=== PATIENT | female | born 1985 | race Caucasian/White ===

== ENCOUNTER → 2018-08-20 | Outpatient (CLI) | payer OTHER ==
--- NOTE | 2018-08-20 12:23 | US ---
EXAMINATION TYPE: US thyroid st tissue head/neck DATE OF EXAM: 08/20/2018 COMPARISON: NONE CLINICAL HISTORY: E07.9Disorder of thyroid, unspecified. MEASUREMENTS: GLAND SIZE: Right Lobe: 4.9 x 1.5 x 1.8cm grossly heterogeneous Left Lobe: 4.9 x 1.2 x 1.9 grossly heterogeneous Isthmus Thickness: 0.3 NODULES RIGHT: # of nodules measured on right: 0 LEFT: # of nodules measured on left: 0 ISTHMUS: # of nodules measured within isthmus: 0 Bilateral neck scanned, no evidence of lymphadenopathy. IMPRESSION: 1. Normal thyroid
== END ==
LOC: RADUSWWP 06:51
PROVIDERS: ATTEND Family Medicine
DX: E07.9 Disorder of thyroid, unspecified (principal)
CPT/HCPCS: 76536

== ENCOUNTER → 2019-09-25 | Outpatient (CLI) | payer OTHER ==
--- NOTE | 2019-09-25 12:22 | MM ---
Reason for exam: clinical finding. Baseline mammogram. Physical Findings: Nurse Summary: 0.5cm nodule in the left breast at 6 o'clock (nurse page). MG 3D Diag Mammo W/Cad ANISH Bilateral CC and MLO view(s) were taken. XCCL view(s) were taken of the right breast. The breast tissue is extremely dense which could obscure a lesion on mammography. There is no discrete abnormality including area of concern marked by BB's. These results were verbally communicated with the patient and result sheet given to the patient on 09/25/19. ASSESSMENT: Incomplete: need additional imaging evaluation, BI-RAD 0 RECOMMENDATION: Ultrasound of both breasts.
--- NOTE | 2019-09-25 12:26 | USB ---
Reason for exam: additional evaluation requested from abnormal screening. US Breast Limited BILAT Right complete breast ultrasound includes all four quadrants, the retroareolar region and axilla. Finding demonstrates no cystic or solid lesion seen. Left limited breast ultrasound including focal area of concern, retroareolar and axilla demonstrates 1.9 x 2.7cm hyperechoic lesion with hypoechoic center at 11 o'clock BB. These results were verbally communicated with the patient and result sheet given to the patient on 09/25/19. ASSESSMENT: Benign, BI-RAD 2 RECOMMENDATION: Routine screening mammogram of both breasts at age 38. Manage patient on a clinical basis.
== END | disposition home or self-care (01) ==
LOC: RADMAMWWP 09:41
PROVIDERS: ATTEND Family Medicine
DX: N63.10 Unspecified lump in the right breast, unspecified quadrant (principal)
CPT/HCPCS: 77062; 77066

== ENCOUNTER → 2022-02-06 | Outpatient (CLI) | payer OTHER ==
--- NOTE | 2022-02-06 18:44 | CA ---
Transthoracic Echo Report Name: Rukhsana Schneider Age: 37 Gender: F : 1985 Exam Date: 02/06/2022 14:38 Exam Location: [place] [facility] Ht (in): 68 Wt (lb): 230 Ordering Physician: Amrik Grace MD Attending/Referring Phys: [id number], Lesly Inner Tube Tuber Machine Operator Phuong Carmichael, [facility] Procedure CPT: Indications: R0600 DYSPNEA, UNSPECIFIED Cardiac Hx: Technical Quality: Fair Contrast 1: Total Dose (mL): Contrast 2: Total Dose (mL): MEASUREMENTS (Male / Female) Normal Values 2D ECHO LV Diastolic Diameter PLAX 4.1 cm 4.2 - 5.9 / 3.9 - 5.3 cm LV Systolic Diameter PLAX 2.5 cm IVS Diastolic Thickness 1.0 cm 0.6 - 1.0 / 0.6 - 0.9 cm LVPW Diastolic Thickness 1.2 cm 0.6 - 1.0 / 0.6 - 0.9 cm LV Relative Wall Thickness 0.5 RV Internal Dim ED PLAX 2.9 cm LA Volume 49.0 cm??? 18 - 58 / 22 - 52 cm??? DOPPLER AV Peak Velocity 113.2 cm/s AV Peak Gradient 5.1 mmHg LVOT Peak Velocity 108.0 cm/s LVOT Peak Gradient 4.7 mmHg MV Area PHT 2.9 cm??? Mitral E Point Velocity 75.6 cm/s Mitral A Point Velocity 85.8 cm/s Mitral E to A Ratio 0.9 MV Deceleration Time 265.2 ms MV E' Velocity 9.6 cm/s Mitral E to MV E' Ratio 7.8 TR Peak Velocity 187.1 cm/s TR Peak Gradient 14.0 mmHg Right Ventricular Systolic Press 19.0 mmHg FINDINGS Left Ventricle Normal Left ventricular size, wall thickness, systolic function with no obvious regional wall motion abnormalities. Normal Left ventricular diastolic filling pattern. Left ventricular ejection fraction is estimated at 55-60 %. Right Ventricle Normal right ventricular size. Right ventricular systolic pressure within normal limits. Right Atrium Normal right atrial size. Left Atrium Normal left atrial size. Mitral Valve Structurally normal mitral valve. No mitral stenosis, regurgitation or prolapse. Aortic Valve Trileaflet aortic valve. No aortic valve stenosis or regurgitation. Tricuspid Valve Structurally normal tricuspid valve. Mild tricuspid regurgitation. Pulmonic Valve Trace pulmonic regurgitation. Pericardium No pericardial effusion. Aorta Normal size aortic root and proximal ascending aorta. CONCLUSIONS Left ventricular ejection fraction 60%, normal Previewed by: Dr. Yamil Solorio MD (Electronically Signed) Final Date: 06 February 2022 18:43
== END | disposition home or self-care (01) ==
LOC: RADECHMAIN 14:33
PROVIDERS: ATTEND Family Medicine
DX: R06.00 Dyspnea, unspecified (principal)
CPT/HCPCS: 93306

== ENCOUNTER 2023-09-27 16:40 | Emergency (ER) | payer OTHER ==
--- NOTE | 2023-09-27 16:56 | ED ---
Extremity Problem HPI - General Chief complaint: Extremity Problem,Nontraumatic Stated complaint: DTV Time Seen by Provider: 09/27/23 16:55 Source: patient Mode of arrival: ambulatory Limitations: no limitations - History of Present Illness Initial comments: 38-year-old female presenting with chief complaint of lower extremity pain and swelling. Patient was on a road trip this past weekend and started getting a pain in her left calf and swelling. She was had outpatient ultrasound today and was instructed to report to the ER confirming that she had a DVT. She denies chest pain or difficulty breathing. No recent surgery. No oral contraceptive pills. No history of blood clots. No blood thinners. No dizziness. - Related Data Previous Rx's Medication Instructions Recorded Apixaban [Eliquis Starter Pack 5 - 10 mg PO DIRECTED 30 Days 09/27/23 (for VTE)] #1 each Allergies Allergy/AdvReac Type Severity Reaction Status Date / Time acetaminophen Allergy Unknown Verified 09/27/23 16:44 [From Darvocet-N] propoxyphene Allergy Unknown Verified 09/27/23 16:44 [From Darvocet-N] Review of Systems ROS Statement: Those systems with pertinent positive or pertinent negative responses have been documented in the HPI. ROS Other: All systems not noted in ROS Statement are negative. Past Medical History Past Medical History: No Reported History History of Any Multi-Drug Resistant Organisms: None Reported Past Surgical History: Adenoidectomy, Tonsillectomy Past Psychological History: No Psychological Hx Reported Smoking Status: Former smoker Past Alcohol Use History: Occasional Past Drug Use History: None Reported General Exam - General Exam Comments Initial Comments: Visual Physical Exam Vital signs reviewed General: Well-appearing, nontoxic, no acute distress. Head: Normocephalic, atraumatic Eyes: PERRLA, EOMI ENT: Airway patent Chest: Nonlabored breathing Skin: No visual rash, normal skin tone Neuro: Alert and oriented 3 Musculoskeletal: No gross abnormalities Limitations: no limitations General appearance: alert, in no apparent distress Head exam: Present: atraumatic, normocephalic Eye exam: Present: normal appearance, EOMI Neck exam: Present: normal inspection. Absent: meningismus Respiratory exam: Absent: respiratory distress Cardiovascular Exam: Present: regular rate Left Lower Leg exam: Present: swelling Neurological exam: Present: alert, oriented X3 Psychiatric exam: Present: normal affect, normal mood Skin exam: Present: warm, dry, normal color Course Vital Signs 09/27/23 09/27/23 16:41 18:42 Temperature 97.6 F 98.1 F Pulse Rate 89 74 Respiratory 16 18 Rate Blood Pressure 138/94 139/93 O2 Sat by Pulse 98 99 Oximetry Medical Decision Making - Medical Decision Making Was pt. sent in by a medical professional or institution (, PA, OFFSET SECOND PRESS OPERATOR, urgent care, hospital, or half-way...) When possible be specific @ -Sent from outpatient ultrasound Did you speak to anyone other than the patient for history (EMS, parent, family, police, friend...)? What history was obtained from this source @ -No Did you review nursing and triage notes (agree or disagree)? Why? @ -I reviewed and agree with nursing and triage notes Were old charts reviewed (outside hosp., previous admission, EMS record, old EKG, old radiological studies, urgent care reports/EKG's, half-way records)? Report findings @ -No old charts were reviewed Differential Diagnosis (chest pain, altered mental status, abdominal pain women, abdominal pain men, vaginal bleeding, weakness, fever, dyspnea, syncope, hea dache, dizziness, GI bleed, back pain, seizure, CVA, palpatations, mental health, musculoskeletal)? @ -Differential Musculoskeletal Muscular strain, contusion, ligament sprain, fracture, arthritis, septic arthritis, bursitis, cellulitis, muscle spasm, nerve compression, DVT, arterial occlusion, herpes zoster, electrolyte abnormality, tumor.... This is not meant to be in all inclusive list EKG interpreted by me (3pts min.). @ -As above X-rays interpreted by me (1pt min.). @ -None done CT interpreted by me (1pt min.). @ -None done U/S interpreted by me (1pt. min.). @ -Ultrasound is positive for DVT extending from the left lesser saphenous vein to the popliteal vein What testing was considered but not performed or refused? (CT, X-rays, U/S, labs)? Why? @ -None What meds were considered but not given or refused? Why? @ -None Did you discuss the management of the patient with other professionals (professionals i.e. , TERRIE, OFFSET SECOND PRESS OPERATOR, lab, RT, psych nurse, child protective services social worker, specialty molder, teacher, liaison officer, case managers)? Give summary @ -No Was smoking cessation discussed for >3mins.? @ -No Was critical care preformed (if so, how long)? @ -No Were there social determinants of health that impacted care today? How? (Homelessness, low income, unemployed, alcoholism, drug addiction, trans portation, low edu. Level, literacy, decrease access to med. care, snf, rehab)? @ -No Was there de-escalation of care discussed even if they declined (Discuss DNR or withdrawal of care, Hospice)? DNR status @ -No What co-morbidities impacted this encounter? (DM, HTN, Smoking, COPD, CAD, Cancer, CVA, ARF, Chemo, Hep., AIDS, mental health diagnosis, sleep apnea, morbid obesity)? @ -None Was patient admitted / discharged? Hospital course, mention meds given and route, prescriptions, significant lab abnormalities, going to OR and other pertinent info. @ -38-year-old female presenting for evaluation. Patient has swelling to the left leg as well as cramping, recent road trip. Had an outpatient ultrasound today and was sent to the ER from the ultrasound. She takes no blood thinners. Labs for baseline are obtained which require no action. Normal coags. Ultrasound report has finalized and is positive for DVT. Patient is given her initial 10 mg dose of Eliquis here and starter pack is sent to her pharmacy. The patient communicated with her pharmacy and since they may not be able to have the prescription ready until late tomorrow she is given her second 10 mg dose to take home and take tomorrow morning. Discharged. Follow-up with PCP. Report back to ER with any new or worsening symptoms. Discussed return parameters and answered all questions. Patient conveyed verbal understanding and agreed to the plan. I discussed this case in detail with my attending Dr. Bower Undiagnosed new problem with uncertain prognosis? @ -No Drug Therapy requiring intensive monitoring for toxicity (Heparin, Nitro, Insulin, Cardizem)? @ -No Were any procedures done? @ -No Diagnosis/symptom? @ -DVT Acute, or Chronic, or Acute on Chronic? @ -Acute Uncomplicated (without systemic symptoms) or Complicated (systemic symptoms)? @ -Uncomplicated Side effects of treatment? @ -No Exacerbation, Progression, or Severe Exacerbation? @ -No - Lab Data Result diagrams: 09/27/23 17:10 09/27/23 17:10 Lab Results 09/27/23 09/27/23 09/27/23 Range/Units 17:10 17:10 17:10 WBC 5.2 (3.8-10.6) k/uL RBC 4.43 (3.80-5.40) m/uL Hgb 15.0 (11.4-16.0) gm/dL Hct 45.2 (34.0-46.0) % MCV 101.9 H (80.0-100.0) fL MCH 33.7 (25.0-35.0) pg MCHC 33.1 (31.0-37.0) g/dL RDW 12.0 (11.5-15.5) % Plt Count 231 (150-450) k/uL MPV 7.7 Neutrophils % 62 % Lymphocytes % 29 % Monocytes % 6 % Eosinophils % 1 % Basophils % 1 % Neutrophils # 3.2 (1.3-7.7) k/uL Lymphocytes # 1.5 (1.0-4.8) k/uL Monocytes # 0.3 (0-1.0) k/uL Eosinophils # 0.1 (0-0.7) k/uL Basophils # 0.0 (0-0.2) k/uL PT 10.1 (10.0-12.5) sec INR 0.9 (<1.2) APTT 23.0 (22.0-30.0) sec Sodium 138 (137-145) mmol/L Potassium 4.1 (3.5-5.1) mmol/L Chloride 108 H (98-107) mmol/L Carbon Dioxide 23 (22-30) mmol/L Anion Gap 7 mmol/L BUN 14 (7-17) mg/dL Creatinine 0.76 (0.52-1.04) mg/dL Est GFR (CKD-EPI)AfAm >90 (>60 ml/min/1.73 sqM) Est GFR (CKD-EPI)NonAf >90 (>60 ml/min/1.73 sqM) Glucose 97 (74-99) mg/dL Calcium 9.2 (8.4-10.2) mg/dL Total Bilirubin 0.7 (0.2-1.3) mg/dL AST 38 H (14-36) U/L ALT 46 H (4-34) U/L Alkaline Phosphatase 84 (38-126) U/L Total Protein 7.3 (6.3-8.2) g/dL Albumin 4.3 (3.5-5.0) g/dL Disposition Clinical Impression: Deep vein thrombosis (DVT) of lower extremity Disposition: HOME SELF-CARE Condition: Good Instructions (If sedation given, give patient instructions): Deep Vein Thrombosis (ED) Additional Instructions: Follow-up with your PCP. Report back to ER with any new or worsening symptoms. Prescriptions: Apixaban [Eliquis Starter Pack (for VTE)] 5 - 10 mg PO DIRECTED 30 Days #1 each Is patient prescribed a controlled substance at d/c from ED?: No Referrals: Amrik Grace MD [Primary Care Provider] - 1-2 days Time of Disposition: 18:23
[2023-09-27 17:21] LABS: Basophils % (A) 1 %; Eosinophils # (A) 0.1 k/uL (0-0.7); Eosinophils % (A) 1 %; HCT 45.2 % (34.0-46.0); Lymphocytes # (A) 1.5 k/uL (1.0-4.8); Lymphocytes % (A) 29 %; MCH 33.7 pg (25.0-35.0); MCHC 33.1 g/dL (31.0-37.0); MCV 101.9 fL (80.0-100.0); Mean Platelet Volume 7.7; Monocytes # (A) 0.3 k/uL (0-1.0); Monocytes % (A) 6 %; Neutrophils # (A) 3.2 k/uL (1.3-7.7); Neutrophils % (A) 62 %; Platelet Count 231 k/uL (150-450); RBC 4.43 m/uL (3.80-5.40); WBC 5.2 k/uL (3.8-10.6)
[2023-09-27 17:32] LABS: ALT 46 U/L (4-34); AST 38 U/L (14-36); African American GFR (CKD) >90 (>60 ml/min/1.73 sqM); Albumin 4.3 g/dL (3.5-5.0); Alkaline Phosphatase 84 U/L (38-126); Anion Gap 7 mmol/L; Blood Urea Nitrogen 14 mg/dL (7-17); Calcium 9.2 mg/dL (8.4-10.2); Carbon Dioxide 23 mmol/L (22-30); Chloride 108 mmol/L (98-107); Glucose 97 mg/dL (74-99); Non-African American GFR(CKD) >90 (>60 ml/min/1.73 sqM); Potassium 4.1 mmol/L (3.5-5.1); Sodium 138 mmol/L (137-145); Total Bilirubin 0.7 mg/dL (0.2-1.3); Total Protein 7.3 g/dL (6.3-8.2)
[2023-09-27 17:34] LABS: INR 0.9 (<1.2); Prothrombin Time 10.1 sec (10.0-12.5)
[2023-09-27] MEDS: APIXABAN 5 MG TAB PO STA ×2 (18:41→18:55)
[2023-09-27 18:44] VITALS: BP 139/93; PULSE 74; RESP 18; TEMP 98.1
== END 2023-09-27 18:56 | disposition home or self-care (01) ==
LOC: EC 16:40
DX: I82.402 Acute embolism and thrombosis of unspecified deep veins of left lower extremity (principal); Z87.891 Personal history of nicotine dependence; Z88.5 Allergy status to narcotic agent; Z88.6 Allergy status to analgesic agent
CPT/HCPCS: 36415; 80053; 85025; 85610; 85730; 99283

== ENCOUNTER → 2023-09-27 | Outpatient (CLI) | payer OTHER ==
--- NOTE | 2023-09-27 17:19 | US ---
EXAMINATION TYPE: US venous doppler duplex LE LT DATE OF EXAM: 09/27/2023 4:27 PM COMPARISON: NONE CLINICAL INDICATION: Female, 38 years old with history of R22.40 LOCALIZED SWELLING, MASS AND LUMP, U NSPECIF; rt post knee and calf pain x last Sunday SIDE PERFORMED: left TECHNIQUE: The lower extremity deep venous system is examined utilizing real time linear array sonog jon with graded compression, doppler sonography and color-flow sonography. VESSELS IMAGED: Common Femoral Vein Deep Femoral Vein Greater Saphenous Vein * Femoral Vein Popliteal Vein Small Saphenous Vein * Proximal Calf Veins (* superficial vessels) Left Leg: Positive for DVT There is echogenic material and noncompressibility consistent with thrombus extending from the lesser saphenous vein into the popliteal vein. There is involvement of the gastroc veins as well. Results communicated to Ewa at office. Patient sent to ER. IMPRESSION: Positive study for DVT extending from the LEFT lesser saphenous vein to the popliteal vein.
== END | disposition home or self-care (01) ==
LOC: RADUSWWP 15:57
PROVIDERS: ATTEND Family Medicine
DX: I82.402 Acute embolism and thrombosis of unspecified deep veins of left lower extremity (principal)

== ENCOUNTER → 2023-12-19 | Outpatient (CLI) | payer OTHER ==
--- NOTE | 2023-12-19 13:59 | US ---
EXAMINATION TYPE: US venous doppler duplex LE LT DATE OF EXAM: 12/19/2023 1:21 PM COMPARISON: 09/27/23 CLINICAL INDICATION: Female, 38 years old with history of I82.409 ACUTE EMBOLISM AND THOMBOS; Hx of c lot in SSV in September 2023 that went into the popliteal vein. On blood thinners. Follow up SIDE PERFORMED: Left TECHNIQUE: The lower extremity deep venous system is examined utilizing real time linear array sonog jon with graded compression, doppler sonography and color-flow sonography. VESSELS IMAGED: Common Femoral Vein Deep Femoral Vein Greater Saphenous Vein * Femoral Vein Popliteal Vein Small Saphenous Vein * Proximal Calf Veins (* superficial vessels) Left Leg: No evidence for DVT at this time. SSV appears compressible and there is adequate blood brittanie w. IMPRESSION: Grayscale, color doppler, spectral doppler imaging performed of the deep veins of the lo wer extremities. There is normal flow, compressibility, vascular waveforms.
== END | disposition home or self-care (01) ==
LOC: RADUSWWP 13:19
PROVIDERS: ATTEND Family Medicine
DX: I82.409 Acute embolism and thrombosis of unspecified deep veins of unspecified lower extremity

== ENCOUNTER → 2024-03-03 | Outpatient (CLI) | payer OTHER ==
--- NOTE | 2024-03-03 16:31 | US ---
EXAMINATION TYPE: US venous doppler duplex LE LT DATE OF EXAM: 03/03/2024 4:02 PM COMPARISON: Left lower extremity venous ultrasound 12/19/2023, 09/27/2023 CLINICAL INDICATION: Female, 39 years old with history of I82.409 ACUTE EMBOLISM AND THOMBOS UNSP CARLOS P VN UN; Left calf pain. History of DVT , TECHNIQUE: The lower extremity deep venous system is examined utilizing real time linear array sonog jon with graded compression, color doppler sonography, and spectral doppler. SIDE PERFORMED: left FINDINGS: VESSELS IMAGED: Common Femoral Vein Deep Femoral Vein Greater Saphenous Vein * Femoral Vein Popliteal Vein Small Saphenous Vein * Proximal Calf Veins (* superficial vessels) Left Leg: No evidence of DVT, Color Doppler imaging shows patency of the vessels. Spectral waveforms are within normal limits. IMPRESSION: No evidence of deep vein thrombosis of the left lower extremity. [facility], , 03/03/2024 4:29 PM
== END | disposition home or self-care (01) ==
LOC: RADUSWWP 15:40
PROVIDERS: ATTEND Family Medicine
DX: I82.409 Acute embolism and thrombosis of unspecified deep veins of unspecified lower extremity (principal)